=== PATIENT | female | born 1965 | race Caucasian/White ===

== ENCOUNTER 2018-06-15 08:42 | Emergency (ER) | payer OTHER ==
[2018-06-15] MEDS: KETOROLAC 60 MG INJ IM (09:03)
== END 2018-06-15 09:31 | disposition home or self-care (01) ==
LOC: FTE 08:42
DX: M25.561 Pain in right knee (principal); E03.9 Hypothyroidism, unspecified
CPT/HCPCS: 96372; 99284-25

== ENCOUNTER 2019-03-08 06:50 | Day surgery (SDC) | payer OTHER ==
[2019-03-08] MEDS ORDERED: SEVOFLURANE 15 MIN (07:00)
[2019-03-08] MEDS ORDERED: SUCCINYLCHOLINE CHLORIDE 100 MG/5 ML SYG IV (08:57)
[2019-03-08] MEDS ORDERED: PROPOFOL 20 ML (08:57)
[2019-03-08] MEDS ORDERED: LIDOCAINE 2% (SDV) 5 ML INJ (08:57)
[2019-03-08] MEDS ORDERED: GLYCOPYRROLATE 0.4 MG INJ ×2 (08:57→10:19)
[2019-03-08] MEDS ORDERED: ROCURONIUM 50 MG INJ (08:57)
[2019-03-08] MEDS ORDERED: NEOSTIGMINE 3 MG/3 ML SYRINGE ×2 (08:57→10:19)
[2019-03-08] MEDS ORDERED: CIPROFLOXACIN 400MG/D5W 200 ML (09:19)
[2019-03-08] MEDS: IOHEXOL 300MG/ML 30 ML BTL INJ (09:57)
[2019-03-08] MEDS ORDERED: DIPHENHYDRAMINE 50 MG INJ IV (10:00)
[2019-03-08] MEDS ORDERED: MEPERIDINE 25 MG INJ IV (10:00)
[2019-03-08] MEDS ORDERED: MIDAZOLAM 1 MG/ML 2 ML INJ IV (10:00)
[2019-03-08] MEDS ORDERED: FENTAnyl 50 MCG/ML VIAL IV ×2 (10:00)
[2019-03-08] MEDS ORDERED: ONDANSETRON 4 MG INJ IV (10:00)
[2019-03-08] MEDS ORDERED: HYDROmorphONE 1 MG/5 ML IV SYRINGE IV ×3 (10:00)
[2019-03-08] MEDS ORDERED: METOCLOPRAMIDE 10 MG INJ IV (10:00)
[2019-03-08] MEDS ORDERED: EPHEDrine SULFATE 50 MG/5 ML SYG IV (10:00)
[2019-03-08] MEDS ORDERED: OXYCODONE/ACETAMINOPHEN (5/325) TAB PO ×2 (10:00)
[2019-03-08] MEDS ORDERED: hydrALAzine 20 MG INJ IV (10:00)
[2019-03-08] MEDS ORDERED: LABETALOL HCL 20MG INJ IV (10:00)
[2019-03-08] MEDS ORDERED: METOCLOPRAMIDE 10 MG INJ (10:17)
[2019-03-08] MEDS ORDERED: ONDANSETRON 4 MG INJ (10:17)
[2019-03-08] MEDS ORDERED: IOHEXOL 300MG/ML 30 ML BTL (10:42)
[2019-03-08] MEDS: FENTAnyl 50 MCG/ML VIAL IV (11:14)
== END 2019-03-08 12:30 | disposition home or self-care (01) ==
LOC: SDS 06:50
DX: N13.2 Hydronephrosis with renal and ureteral calculous obstruction (principal); F17.210 Nicotine dependence, cigarettes, uncomplicated
CPT/HCPCS: 52356